=== PATIENT | female | born 1930 | race Caucasian/White ===

== ENCOUNTER → 2016-12-06 | Outpatient (CLI) | payer MEDICARE ==
[~2016-12-06] MED LIST: AC325T PO; ACET-789 PO; ACET325T38 PO; ALPR.25T PO; ASPI-504 PO; BENZ-13 PO; CALC-140 PO; CEFP250T2 PO; CHOL100061 PO; GABA600T PO; GBPN300C PO; GUAI473L8 PO; HYDR-3702 PO; HYDR-3754 PO; LEVO150T PO; LEVO75TA PO; LOVA40TA45 PO; LOVA40TA54 PO; LVCR25100 PO; MAG30ORA2 GT; MAGN400O7 PO; NYST30CR TOP; PRED20TA PO; SENN-115 PO; SENN-36 PO
== END ==
LOC: EMS 12:15
DX: Z53.20 Procedure and treatment not carried out because of patient's decision for unspecified reasons (principal)

== ENCOUNTER → 2017-02-14 | Outpatient (CLI) | payer MEDICARE | LOC: EMS 13:21 | DX: Z53.20 Procedure and treatment not carried out because of patient's decision for unspecified reasons (principal) ==

== ENCOUNTER 2017-02-16 02:28 | Emergency (ER) | payer MEDICARE ==
[~2017-02-16] VITALS: Ht 165.1 cm; Wt 75.0 kg
[~2017-02-16 02:28] MED LIST changes: -ACET-789 PO; -ALPR.25T PO
--- OUTSIDE RECORDS SUMMARY | 2017-02-16 02:38 | XMS REPORT | Continuity of Care Document ---
Author Author [facility] Organization [facility] Address Unknown Phone Unavailable Care Team Providers Care Farm Consultant Name Role Phone EULALIA LEBRON MD PCP [phone] Insurance Providers Payer Name Policy Number Subscriber Name Relationship Medicare A And B [id number] Charlotte Martinez 17 Self / Same As Patient Blue Cross [facility] Supp [id number] Charlotte Martinez 17 Self / Same As Patient Chief Complaint and Reason for Visit Chief Complaint Malaise Reason for Visit Weakness Malaise Problems Medical Problems Problem Onset Date Status Shoulder pain 09/04/2012 Active Bronchitis 02/02/2013 Active Hypoxemia 02/02/2013 Active 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 Arthritis 08/31/2013 Active Hip pain 12/16/2013 Active Accidental fall 12/16/2013 Active Abrasion 12/16/2013 Active 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 Nausea & vomiting 11/29/2014 Active Weakness Unknown Active Malaise Unknown Active Medications Medication Dose Route Sig Days/Qty Instructions Order Date Discontinued Date Status Hydrocodone Bit/Acetaminophen 1 Tab ORAL Q 4H PRN 09/04/12 02/02/13 Discontinued Levothyroxine Sodium 75 Mcg ORAL DIRECTED 09/04/12 09/12/13 Discontinued Lovastatin 40 Mg ORAL BEDTIME 09/04/12 09/12/13 Discontinued Calcium Carbonate/Vitamin D3 1 Each ORAL DAILY 09/04/12 02/02/13 Discontinued Aspirin 81 Mg ORAL DAILY 09/04/12 Active Senna 2 Ea ORAL TWICE A DAY 09/04/12 09/12/13 Discontinued Mag Hydrox/Al Hydrox/Simeth 30 Ml GT UNKNOWN 09/04/12 02/02/13 Discontinued Gabapentin (Neurontin) 1 Cap ORAL TWICE A DAY 02/02/13 02/06/13 Discontinued Guaifenesin/Codeine Phosphate ORAL NEEDED 02/02/13 02/06/13 Discontinued Gabapentin 600 Mg ORAL THREE TIMES A DAY 02/06/13 Active Cholecalciferol (Vitamin D3) 1,000 Unit ORAL BEDTIME 02/06/13 Active Benzonatate 100 - 200 Mg ORAL EVERY 8HRS PRN 02/06/13 06/27/13 Discontinued Cefprozil 250 Mg ORAL TWICE A DAY 7 Days 02/06/13 06/27/13 Discontinued Prednisone 40 Mg ORAL DAILY 3 Days 02/06/13 06/27/13 Discontinued Acetaminophen 650 Mg ORAL EVERY 4HRS PRN 06/27/13 08/31/13 Discontinued Acetaminophen/Hydrocodone Bitart 1 - 2 Each ORAL EVERY 4HRS PRN 08/3109/12/13 Discontinued Acetaminophen (Tylenol) 650 Mg ORAL EVERY 4HRS PRN 09/12/13 Discontinued Magnesium Hydroxide 30 Ml ORAL EVERY 6 HOURS PRN 09/12/13 12/31/13 Discontinued Levothyroxine Sodium 75 Mcg ORAL DIRECTED 09/12/13 12/01/14 Discontinued Sennosides 17.2 Mg ORAL TWICE A DAY 09/12/13 12/31/13 Discontinued Lovastatin 40 Mg ORAL DAILY 09/12/13 Active Senna 2 Ea ORAL TWICE A DAY PRN CONSTIPATION 12/31/13 Active Acetaminophen/Hydrocodone Bitart 1 Each ORAL THREE TIMES A DAY Active Nystatin 1 Applic TOPICAL TWICE A DAY 15 Qty 12/01/14 Active Levothyroxine Sodium 75 Mcg ORAL SuMoTuWeThFr@07 0 Qty 12/01/14 Active Levothyroxine Sodium 150 Mcg ORAL Sa@07 0 Qty 12/01/14 Active Social History No social history. Hospital Discharge Instructions No hospital discharge instructions. Plan of Care Discharge Date 04/02/15 2:27pm Disposition 01 HOME OR SELF-CARE Condition at Discharge Stable Instructions/Education Provided Hypothyroidism (ED) Prescriptions See Medications Section Referrals EULALIA LEBRON MD Additional Instructions/Education Eat regularly. Rest. follow up with primary care doctor. Return to ER as needed. Some of your test results may not be complete prior to your leaving the Emergency Department. The Emergency Department is not authorized to give test results over the phone. Please contact the doctor's office listed in this packet of information for your final results. Follow up with your primary care physician or return to the Emergency Department for worsening or worrisome symptoms. * Emergency Department phone number: [phone], x [phone]* MEDICAL RECORD If you need copies of your X-rays, call [phone]. If you need copies of your medical record, including lab results, a signed authorization for release of records will be required. A telephone call for release of Health Information is not allowed. BILLING Billing can sometimes be confusing and frustrating. To help avoid confusion in the future, please take a moment to acquaint yourself with the billing parties for services. SERVICE BILLING [employer] Emergency Room Services [facility] Physician Services [facility] [place] [facility] Patients will receive bills for services from the appropriate provider. If you have any questions about your [facility] bill, our staff will be happy to assist you. Please call [phone], and ask for the billing department. THANK YOU for choosing [facility] as your emergency care provider! Functional Status No functional status results. Allergies, Adverse Reactions, Alerts Allergen Type Severity Reaction Status Last Updated No Known Drug Allergies Active 09/04/12 Immunizations No immunization records. Vital Signs Acute Vital Signs Vital Response Date/Time Temperature (Fahrenheit) 98.1 Pulse 70 bpm Respirations 20 Height 5 ft 5 in Weight 159 lb Body Mass Index 26.0 kg/m^2 Results Test Source Date Result Interp. Ref. Range Comments Absolute Band Neutrophils December 27, 2013 5:45am 0.0 # Collected by nurse? N Absolute Neutrophil June 22, 2013 5:15am 0.1 # Collected by nurse ? N Activated Partial Thromboplast Time April 02, 2015 12:53pm 29.9 SEC N 24.9 -35.9 Alanine Aminotransferase (ALT/SGPT) April 02, 2015 12:53pm 20 U/L L 30-65 Albumin April 02, 2015 12:53pm 4.0 g/dL DN 3.4-5.0 Albumin/Globulin Ratio April 02, 2015 12:53pm 1.428 N 1.1-1.8 Alkaline Phosphatase April 02, 2015 12:53pm 61 U/L N 38-126 Blayne Test February 02, 2013 8:50am + Amylase Level November 29, 2014 2:45pm 45 U/L N 25-115 Collected by nurse? NCollected by nurse? N Collected by nurse? N Collected by nurse? N Collected by nurse? N Collected by nurse? N Anion Gap April 02, 2015 12:53pm 11.3 MEQ/L N 3-15 Arterial Blood Base Excess February 02, 2013 8:50am 3.0 N -2.0-3.0 Arterial Blood HCO3 February 02, 2013 8:50am 28.4 MEQ/L H 22.0-26.0 Arterial Blood Oxygen Saturation February 02, 2013 8:50am 91 % L 95-98 Arterial Blood Partial Pressure CO2 February 02, 2013 8:50am 47 mmHg H 35- 45 Arterial Blood Partial Pressure O2 February 02, 2013 8:50am 63 mmHg L 80- 105 Arterial Blood Total CO2 February 02, 2013 8:50am 30.0 MARGARITA/L H 23.0-27.0 Arterial Blood pH February 02, 2013 8:50am 7.39 N 7.35-7.45 All ABG Results called towho read back the results. Called by Cynthia Valdez at 0919 Aspartate Amino Transf (AST/SGOT) April 02, 2015 12:53pm 22 U/L N 15-37 B-Type Natriuretic Peptide June 17, 2013 4:00pm 46 PG/ML N 0-100 Collected by nurse? NComments to Office Technician: Call to Dr Lebron BUN/Creatinine Ratio April 02, 2015 12:53pm 19 N 10-20 Band Neutrophils % December 27, 2013 5:45am 0 % N 0-6 Collected by nurse? N Basophils # (Auto) April 02, 2015 12:53pm 0.0 10^3uL Basophils % February 05, 2013 5:45am 0 % N 0-1 Collected by nurse? N Basophils % (Manual) December 27, 2013 5:45am 0 % N 0-2 Collected by nurse? N Basophils (%) (Auto) April 02, 2015 12:53pm 0 % N 0-2 Blood Gas Liter Flow February 02, 2013 8:50am 2.0 LPM Blood Gas Puncture Site February 02, 2013 8:50am Left radial Blood Morphology Comment December 27, 2013 5:45am Normal NORMAL Collected by nurse? N Blood Urea Nitrogen April 02, 2015 12:53pm 14 mg/dL N 7-18 C-Reactive Protein June 22, 2013 5:15am 6.90 MG/DL H 0.0-0.9 Collected by nurse? N Calcium Level April 02, 2015 12:53pm 9.3 mg/dL N 8.8-10.8 Calcium/Ionized Calcium Ratio April 02, 2015 12:53pm 4.2 mg/dL N 3.8-4.6 Calculated Osmolality April 02, 2015 12:53pm 272 mosm/L L 280-300 Carbon Dioxide Level April 02, 2015 12:53pm 29 mmol/L N 22-29 Chloride Level April 02, 2015 12:53pm 104 mmol/L N 98-108 Cholesterol Level June 27, 2014 8:01am 243 mg/dL H 0-199 Creatine Kinase MB April 02, 2015 12:53pm 2.7 ng/mL N 0.0-6.0 Creatinine April 02, 2015 12:53pm 0.74 mg/dL N 0.6-1.2 D-Dimer February 02, 2013 8:35am 0.70 ug/mL PH 0.20-0.41 Results called to YAMINI/Terrie read back the results. Called by Shanique Dawn at 1021 Differential Total Cells Counted December 27, 2013 5:45am 100 Collected by nurse? N Eosinophils # December 27, 2013 5:45am 0.2 # Collected by nurse? N Eosinophils # (Auto) April 02, 2015 12:53pm 0.2 10^3uL Eosinophils % February 05, 2013 5:45am 10 % H 0-5 Collected by nurse? N Eosinophils % (Manual) December 27, 2013 5:45am 4 % N 0-4 Collected by nurse? N Eosinophils (%) (Auto) April 02, 2015 12:53pm 5 % H 0-4 Estimat Glomerular Filtration Rate April 02, 2015 12:53pm 90.3 Estimated GFR (Non- April 02, 2015 12:53pm 74.6 Ferritin January 26, 2013 10:28am 63 ng/mL 13-140 Glucose Level April 02, 2015 12:53pm 96 mg/dL N 70-110 HDL Cholesterol June 27, 2014 8:01am 60 mg/dL 40-84 Hematocrit April 02, 2015 12:53pm 39.90 % N 35.00-45.00 Hemoglobin April 02, 2015 12:53pm 13.0 g/dL N 12.0-15.5 Hypochromasia June 22, 2013 5:15am Slight Collected by nurse? N LDL Cholesterol, Calculated June 27, 2014 8:01am 161 mg/dL H 0-130 Lipase November 29, 2014 2:45pm 34 U/L N 23-300 Collected by nurse? NCollected by nurse? N Collected by nurse? N Collected by nurse? N Collected by nurse? N Collected by nurse? N Lymphocytes # December 27, 2013 5:45am 1.0 # Collected by nurse? N Lymphocytes # (Auto) April 02, 2015 12:53pm 0.9 X10^3 Lymphocytes % February 05, 2013 5:45am 42 % H 16-34 Collected by nurse? N Lymphocytes % (Manual) December 27, 2013 5:45am 16 % L 20-46 Collected by nurse? N Lymphocytes (%) (Auto) April 02, 2015 12:53pm 19 % L 20-46 Magnesium Level November 30, 2014 5:05am 2.1 MG/DL N 1.6-2.3 Collected by nurse? N Mean Corpuscular Hemoglobin April 02, 2015 12:53pm 29.9 PG N 26.0-34.0 Mean Corpuscular Hemoglobin Concent April 02, 2015 12:53pm 32.6 g/dL N 31.0-37.0 Mean Corpuscular Volume April 02, 2015 12:53pm 92 FL N 80-100 Mean Platelet Volume April 02, 2015 12:53pm 9.8 FL H 6.0-9.5 Metamyelocytes % December 27, 2013 5:45am 0 % N 0-1 Collected by nurse ? N Monocytes # December 27, 2013 5:45am 0.3 # Collected by nurse? N Monocytes # (Auto) April 02, 2015 12:53pm 0.4 X10^3 Monocytes % February 05, 2013 5:45am 12 % H 0-10 Collected by nurse? N Monocytes % (Manual) December 27, 2013 5:45am 5 % N 3-11 Collected by nurse? N Monocytes (%) (Auto) April 02, 2015 12:53pm 9 % N 3-11 Neutrophils # December 27, 2013 5:45am 4.8 # Collected by nurse? N Neutrophils # (Auto) April 02, 2015 12:53pm 3.1 X10^3 Neutrophils (%) (Auto) April 02, 2015 12:53pm 67 % N 51-67 Phosphorus Level November 30, 2014 5:05am 3.9 MG/DL N 2.4-4.9 Collected by nurse? N Platelet Count April 02, 2015 12:53pm 234 10^3uL N 150-450 Potassium Level April 02, 2015 12:53pm 4.3 mmol/L N 3.5-5.1 Prothromb Time International Ratio April 02, 2015 12:53pm 1.1 N 0.8-1.4 Prothrombin Time April 02, 2015 12:53pm 14.4 SEC H 11.9-14.2 Red Blood Count April 02, 2015 12:53pm 4.35 10^6uL N 4.00-5.00 Red Cell Distribution Width April 02, 2015 12:53pm 14.6 % N 11.8-15.6 Segmented Neutrophils % December 27, 2013 5:45am 75 % H 51-67 Collected by nurse? N Smear Scan December 24, 2013 5:35am Yes ANISOCYTOSIS SLIGHTMACROCYTOSIS SLIGHT VERIFIED BY SCAN OF SMEAR. Smudge Cells December 27, 2013 5:45am Not Performed Sodium Level April 02, 2015 12:53pm 140 mmol/L N 135-150 Thyroid Stimulating Hormone (TSH) April 02, 2015 12:53pm 2.79 uIU/mL DN 0.46-4.68 Thyroxine (T4) August 02, 2014 2:21pm 8.3 ug/dL 4.8-11.7 Total Bilirubin April 02, 2015 12:53pm 0.5 mg/dL DN 0.1-1.0 Total Creatine Kinase April 02, 2015 12:53pm 141 U/L H 30-135 Total Protein April 02, 2015 12:53pm 6.8 g/dL N 6.4-8.5 Triglycerides Level June 27, 2014 8:01am 110 mg/dL 0-149 Troponin I April 02, 2015 12:53pm < 0.012 ng/mL 0.010-0.080 Urine Bacteria June 27, 2014 8:01am None seen /HPF Urine Bilirubin November 30, 2014 6:05pm Negative Negative Collected by nurse? YHas specimen been collected/obtained? Y Urine Blood November 30, 2014 6:05pm Negative Negative Collected by nurse? YHas specimen been collected/obtained? Y Urine Clarity November 30, 2014 6:05pm Clear Collected by nurse? YHas specimen been collected/obtained? Y Urine Collection Type November 30, 2014 6:05pm Clean catch Collected by nurse? YHas specimen been collected/obtained? Y Urine Color November 30, 2014 6:05pm Light yellow Collected by nurse ? YHas specimen been collected/obtained? Y Urine Glucose (UA) November 30, 2014 6:05pm Negative Negative Collected by nurse? YHas specimen been collected/obtained? Y Urine Hyaline Casts January 26, 2013 10:28am 1+ /LPF H Urine Ketones November 30, 2014 6:05pm Negative Negative Collected by nurse? YHas specimen been collected/obtained? Y Urine Leukocyte Esterase November 30, 2014 6:05pm Negative Negative Collected by nurse? YHas specimen been collected/obtained? Y Urine Mucus August 23, 2013 2:29pm 1+ Urine Nitrite November 30, 2014 6:05pm Negative Negative Collected by nurse? YHas specimen been collected/obtained? Y Urine Protein November 30, 2014 6:05pm Negative Negative Collected by nurse? YHas specimen been collected/obtained? Y Urine RBC June 27, 2014 8:01am 2-5 /HPF Urine Renal Epithelial Cells August 23, 2013 2:29pm 2-5 /LPF Urine Specific [place] November 30, 2014 6:05pm 1.015 1.005-1.030 Collected by nurse? YHas specimen been collected/obtained? Y Urine Squamous Epithelial Cells June 27, 2014 8:01am 2-5 /LPF Urine Transitional Epithelial Cells August 23, 2013 2:29pm 0-2 /LPF Urine Urobilinogen November 30, 2014 6:05pm 0.2 mg/dL 0.2-1.0 Collected by nurse? YHas specimen been collected/obtained? Y Urine WBC June 27, 2014 8:01am None seen /HPF Urine pH November 30, 2014 6:05pm 7.0 5.0 - 8.0 Collected by nurse? YHas specimen been collected/obtained? Y VLDL Cholesterol June 27, 2014 8:01am 22 mg/dL 0-28 Vitamin D 25-Hydroxy January 26, 2013 10:28am 29 ng/mL L 30-74 The desirable level of 25-Hydroxy Vitamin D Total(D2 + D3) is 30-74 ng/mL.A level consistently >200 is potentially toxic. Vitamin D2 January 26, 2013 10:28am <7 ng/mL () Vitamin D3 January 26, 2013 10:28am 29 ng/mL () Volume Urine Centrifuged June 27, 2014 8:01am 10 ml White Blood Count April 02, 2015 12:53pm 4.58 10^3uL N 4.0-11.0 Urine Culture Urine-Clean Catch June 07, 2013 12:20pm Procedures No known history of procedures. Encounters Encounter Location Date/Time Departed Emergency Room [facility] 04/02/15 12:03pm Recent Diagnosis
--- NOTE | 2017-02-16 02:40 | NUR ---
ABELARDO Gale NOTIFIED DR SHARP AND GAVE HIM REPORT. SHOULDER X RAY ORDERED BY
[2017-02-16] MEDS ORDERED: HYDR-3702 PO (03:05)
[2017-02-16] MEDS ORDERED: ALPR.25T PO (03:05)
[2017-02-16] MEDS ORDERED: ACET-789 PO (03:25)
[2017-02-16 03:37] VITALS: BP 157/83
--- NOTE | 2017-02-16 07:40 | Diagnostic Imaging Report ---
INDICATION: Fell, right shoulder pain FINDINGS: 3 views of the right shoulder compared to an exam from May the . Exam demonstrates stable right shoulder arthroplasty. No acute findings are present. IMPRESSION: Stable right shoulder. Dictated by: Dictated on workstation # [id number]
== END 2017-02-16 03:54 | disposition home or self-care (01) ==
LOC: EDUNIT# 02:28 → ED 02:32
DX: S46.911A Strain of unspecified muscle, fascia and tendon at shoulder and upper arm level, right arm, initial encounter (principal); S20.212A Contusion of left front wall of thorax, initial encounter; W01.10XA Fall on same level from slipping, tripping and stumbling with subsequent striking against unspecified object, initial encounter; Z91.81 History of falling; Y92.009 Unspecified place in unspecified non-institutional (private) residence as the place of occurrence of the external cause
CPT/HCPCS: 73030; 99282; 99283

== ENCOUNTER → 2017-02-16 | Outpatient (CLI) | payer MEDICARE | LOC: EMS 00:30 | PROVIDERS: ATTEND Family Medicine | DX: M54.2 Cervicalgia (principal); M25.511 Pain in right shoulder; Z96.611 Presence of right artificial shoulder joint; W19.XXXA Unspecified fall, initial encounter ==

== ENCOUNTER 2017-03-05 11:09 | Observation (INO) | payer MEDICARE ==
[~2017-03-05] VITALS: Ht 160 cm; Wt 67.0 kg
[~2017-03-05 11:09] MED LIST changes: -BACI1PAC7 TOP; -BACI3.5O5 TOP; -LEVO75TA6 PO
--- OUTSIDE RECORDS SUMMARY | 2017-03-05 11:16 | XMS REPORT | Continuity of Care Document ---
Author Author [facility] Organization [facility] Address Unknown Phone Unavailable Care Team Providers Care Senior Clinician Name Role Phone EULALIA LEBRON MD PCP [phone] Insurance Providers Payer Name Policy Number Subscriber Name Relationship Medicare A And B [id number] Charlotte Martinez 17 Self / Same As Patient Blue Cross [facility] Supp [id number] Charlotte Martinez 17 Self / Same As [...] worrisome symptoms. * Emergency Department phone number: [phone], x [phone]* MEDICAL RECORD If you need copies of your X-rays, call [phone] x [phone]. If you need copies of [...] the billing parties for services. SERVICE BILLING [employer] Emergency Room Services [facility] Physician Services [facility] [place] [facility] Patients will receive bills for services from the appropriate provider. If you have any questions about your [facility] bill, our staff will be happy to assist you. Please call [phone], and ask for the billing department. THANK YOU for choosing [facility] as your emergency care provider! Functional Status [...] N 0-100 Collected by nurse? NComments to Voice Over Artist: Call to Dr Lberon BUN/Creatinine Ratio April 02, 2015 12:53pm 19 [...] 23, 2013 2:29pm 2-5 /LPF Urine Specific [place] November 30, 2014 6:05pm 1.015 1.005-1.030 Collected [...] Encounters Encounter Location Date/Time Departed Emergency Room [facility] 04/02/15 12:03pm Recent Diagnosis
[2017-03-05 11:39] LABS: BASOPHILS % (AUTO) 1 % (0-2); EOSINOPHILS # (AUTO) 0.5 10^3uL; EOSINOPHILS % (AUTO) 11 % (0-4); LYMPHOCYTES # (AUTO) 0.9 X10^3; MEAN CORPUSCULAR HEMOGLOBIN 29.4 PG (26.0-34.0); MEAN CORPUSCULAR VOLUME 93 FL (80-100); MEAN PLATELET VOLUME 10.2 FL (6.0-9.5); MONOCYTES # (AUTO) 0.4 X10^3; MONOCYTES % (AUTO) 9 % (3-11); NEUTROPHILS # (AUTO) 3.1 X10^3; NEUTROPHILS % (AUTO) 60 % (51-67); PLATELET COUNT 203 10^3uL (150-450); WHITE BLOOD COUNT 5.07 10^3uL (4.0-11.0)
[2017-03-05 11:42] LABS: MEAN CORPUSCULAR HGB CONC 31.7 g/dL (31.0-37.0)
[2017-03-05 11:53] LABS: ALBUMIN 4.3 g/dL (3.4-5.0); ALKALINE PHOSPHATASE 136 U/L (38-126); ANION GAP 15.7 MEQ/L (3-15); BUN/CREATININE RATIO 25 (10-20); CALCULATED IONIZED CALCIUM 4.1 mg/dL (3.8-4.6); CREATINE KINASE 141 U/L (30-135); TOTAL PROTEIN 7.5 g/dL (6.4-8.5)
[2017-03-05] MEDS ORDERED: DOCUSATE SODIUM 100 MG (COLACE) CAP PO PRN (13:05)
[2017-03-05] MEDS ORDERED: MAG HYDROX/AL HYDROX/SIMETH 200-200-20/5 ML (MAG-AL PLUS) 30 ML UDC PO PRN (13:05)
[2017-03-05] MEDS ORDERED: CALCIUM CARBONATE CHEWABLE 300 MG (TUMS) TABLET PO PRN (13:05)
[2017-03-05] MEDS ORDERED: ACETAMINOPHEN 325 MG TAB (TYLENOL) PO PRN (13:05)
[2017-03-05] MEDS ORDERED: POLYETHYLENE GLYCOL 17 GM (MIRALAX) PACKET PO PRN (13:05)
[2017-03-05] MEDS ORDERED: MAGNESIUM HYDROXIDE 80MG/ML (MILK OF MAGNESIA) 30 ML UDC PO PRN (13:05)
[2017-03-05] MEDS ORDERED: NITROGLYCERIN SUBLINGUAL 0.4 MG (NITROQUICK) TABLET SL PRN (13:05)
[2017-03-05] MEDS ORDERED: PROMETHAZINE HCL INJ 12.5 MG in SODIUM CHLORIDE 25 ML IV PRN (13:05)
[2017-03-05] MEDS ORDERED: ONDANSETRON 4 MG (ZOFRAN) ORAL DISSOLVE TAB PO PRN (13:05)
[2017-03-05] MEDS ORDERED: morphine INJ 4 MG/ML 1 ML SYRINGE IV PRN (13:05)
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
[2017-03-05] MEDS ORDERED: NS FLUSH 3 ML PRN IV (13:20)
[2017-03-05] MEDS ORDERED: NS FLUSH 10 ML PRN IV (13:20)
[2017-03-05] MEDS ORDERED: BACI3.5O5 TOP (13:37)
[2017-03-05] MEDS ORDERED: LEVO75TA6 PO ×2 (13:37)
--- NOTE | 2017-03-05 13:45 | NUR ---
Pt admitted to room 314 via w/c from ED accompanied by Manuel BEE. Daughter came with patient as well.
[2017-03-05 14:17] VITALS: BP 147/75
[2017-03-05 14:26] LABS: MAGNESIUM* 2.3 mg/dL (1.6-2.3)
[2017-03-05 14:28] VITALS: BP 147/75
--- NOTE | 2017-03-05 14:38 | Diagnostic Imaging Report ---
INDICATION: Chest pain. COMPARISON: 04/02/15. FINDINGS: Ill-defined nodular opacities in the left mid and lower lung zones. No pleural effusion or pneumothorax. Normal cardiomediastinal silhouette. Atherosclerotic aorta. Partially imaged right shoulder arthroplasty. IMPRESSION: 1. Ill-defined nodular opacities in the left mid to lower lung zone are likely infectious in etiology. Dictated by: Dictated on workstation # [id number]
[2017-03-05] MEDS ORDERED: ACETAMINOPHEN/CODEINE 300MG/30 MG (TYLENOL #3) TABLET PO PRN (14:40)
--- NOTE | 2017-03-05 15:12 | NUR ---
MED REC COMPLETE--current med list obtained from external med history, retail pharmacy ([facility]), and patient interview.
[2017-03-05 15:46] VITALS: BP 109/55
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
[2017-03-05] MEDS: GABAPENTIN 600 MG (NEURONTIN) TAB PO SCH (18:01)
--- NOTE | 2017-03-05 18:12 | NUR ---
Pt sitting upright in bed, eating supper. Denies having any further chest pain or chest discomfort- Daughter, Akila at bedside. Takes PM meds without difficulty.
[2017-03-05 19:55] VITALS: BP 107/64
[2017-03-05] MEDS: CHOLECALCIFEROL 1000 INT UNITS (VITAMIN D3) TABLET PO SCH (20:17)
[2017-03-06 00:10] VITALS: BP 110/65
[2017-03-06 04:33] VITALS: BP 131/85
[2017-03-06] MEDS ORDERED: LEVOTHYROXINE 150 MCG (LEVOTHROID) TABLET PO SCH (07:00)
--- NOTE | 2017-03-06 07:00 | NUR ---
Patient rests in bed throughout night without needs. Reports no chest pain throughout night. Up to bathroom x1 this shift with missed hat, UA has not been collected. No needs at this time.
[2017-03-06 07:37] LABS: ALBUMIN 3.2 g/dL (3.4-5.0); ANION GAP 11.6 MEQ/L (3-15)
[2017-03-06 07:44] VITALS: BP 97/62
[2017-03-06] MEDS: ENOXAPARIN 40 MG/0.4 ML (LOVENOX) SYR SC SCH (08:19)
[2017-03-06] MEDS: NS FLUSH 3 ML DAILY IV SCH (08:19)
[2017-03-06] MEDS: GABAPENTIN 600 MG (NEURONTIN) TAB PO SCH ×3 (08:19→18:26)
[2017-03-06] MEDS: ASPIRIN 81 MG CHEW (LOW-DOSE) PO SCH (08:19)
[2017-03-06 08:53] LABS: BILIRUBIN,URINE Negative (Negative); CLARITY,URINE Clear; COLOR,URINE Yellow; GLUCOSE, URINE (UA) Negative (Negative); LEUKOCYTE ESTERASE ,URINE Negative (Negative); UROBILINOGEN,URINE 0.2 mg/dL (0.2-1.0)
--- NOTE | 2017-03-06 08:53 | NUR ---
Patient ate 100% breakfast, took AM meds without difficulty. IV SL intact to Lt wrist- flushes without difficulty. Remains on RA. Sats 92%. When asked if she has any chest pain or discomfort patient states "no, but I am breathing more heavy because my back hurts from this bed." Expiratory wheezes noted- audible from door- Rahel RT notified. This nurse encouraged patient to get up to bathroom then chair to prevent pneumonia from laying in bed- patient hesitant but agrees- Ambulates to bathroom with 1 assist and walker, does lean back and loses balance- staff has to support her to a forward position with walker. UA obtained and sent to lab at this time. Pt refuses to take a shower- Terrie Gale CNA gives patient a sponge bath at bedside. Pt up in chair now- BLE elevated. Call light within reach. Telemetry in place- reading NSR with first degree and occasional Bundle branch block, rate 70-80s-per Charity ZHOU in ICU. Will cont to monitor patient.
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
[2017-03-06 11:01] LABS: BASOPHILS % (AUTO) 0 % (0-2); EOSINOPHILS # (AUTO) 0.4 10^3uL; EOSINOPHILS % (AUTO) 8 % (0-4); LYMPHOCYTES # (AUTO) 1.2 X10^3; MEAN CORPUSCULAR HEMOGLOBIN 29.4 PG (26.0-34.0); MEAN CORPUSCULAR HGB CONC 31.8 g/dL (31.0-37.0); MEAN CORPUSCULAR VOLUME 93 FL (80-100); MEAN PLATELET VOLUME 10.4 FL (6.0-9.5); MONOCYTES # (AUTO) 0.7 X10^3; MONOCYTES % (AUTO) 12 % (3-11); NEUTROPHILS # (AUTO) 3.1 X10^3; NEUTROPHILS % (AUTO) 57 % (51-67); PLATELET COUNT 225 10^3uL (150-450); WHITE BLOOD COUNT 5.39 10^3uL (4.0-11.0)
[2017-03-06] MEDS: CARBIDOPA PO SCH ×3 (12:47→20:41)
[2017-03-06] MEDS: LEVODOPA PO SCH ×3 (12:47→20:41)
[2017-03-06 16:00] VITALS: BP 110/68
--- NOTE | 2017-03-06 19:45 | NUR ---
Pt sitting up in recliner watching tv, alert and oriented x 4, Resp are even and nonlabored, LCTAB, HRRR, BS are active x 4 quadrants. Telemetry has been DC'd, has denied chest pain. SL is patent, no redness, swelling, or s/s of infection noted at this time. Denies pain or needs at this time, call light is in reach, tab alarm is on and in place, will continue to monitor.
[2017-03-06 20:00] VITALS: BP 116/64
[2017-03-06] MEDS: CHOLECALCIFEROL 1000 INT UNITS (VITAMIN D3) TABLET PO SCH (20:41)
[2017-03-07 00:16] VITALS: BP 128/72
[2017-03-07 04:21] VITALS: BP 120/71
--- NOTE | 2017-03-07 04:59 | NUR ---
Pt is resting in bed asleep, resp are even and nonlabored, does not appear to be in discomfort at this time. Will continue to monitor.
[2017-03-07] MEDS: LEVOTHYROXINE 75 MCG (LEVOTHROID) TABLET PO SCH (06:08)
[2017-03-07 07:35] VITALS: BP 109/57
[2017-03-07] MEDS: GABAPENTIN 600 MG (NEURONTIN) TAB PO SCH ×3 (08:10→17:33)
--- NOTE | 2017-03-07 09:13 | NUR ---
NUTRITION ASSESSMENT Level 1 Patient: Charlotte Romero Age/Sex: 86/F Date Screened: 03-07-17 Weight: 150#/68.2 kg Height: 63 inches Primary Diagnosis: chest pain Diet Order: cardiac Relevant labs: N/A Food allergies: N Nutrition Assessment Criteria Age over 80: 4 points Body Mass Index (BMI) under 19: N Admission Screening Indicates Risk? 3 points Moderate/High Risk Diagnosis: N TPN or PPN: N NPO or clear liquid diet: N Serum Glucose <70 or >180: N/A Hgb A1c >6.7: N/A Total: 7 points Risk Screen: __ Patient at low nutritional risk based on available data; reevaluate in 5-7 days __ Patient at moderate nutritional risk based on available data; reevaluate in 3-5 days _X_ Patient at high nutritional risk; complete Nutrition Assessment within 48 hours of admission.
[2017-03-07] MEDS: ASPIRIN 81 MG CHEW (LOW-DOSE) PO SCH (10:17)
[2017-03-07] MEDS: CARBIDOPA PO SCH ×4 (10:18→21:28)
[2017-03-07] MEDS: NS FLUSH 3 ML DAILY IV SCH (10:18)
[2017-03-07] MEDS: ENOXAPARIN 40 MG/0.4 ML (LOVENOX) SYR SC SCH (10:18)
[2017-03-07] MEDS: LEVODOPA PO SCH ×4 (10:18→21:28)
[2017-03-07 11:34] VITALS: BP 135/67
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
--- NOTE | 2017-03-07 13:38 | NUR ---
MULTIDISCIPLINARY MTG/DR. BALTAZAR: Pt. has improved. Pt. was started on Parkinson's medication and will discharge on medications. PT/OT will evaluate Pt. Pt. lives at home alone. She receives home health services through [facility] and she get Meals on Wheels. CARLO visited with Pt. and her daughter. Pt. daughter reports she checks on her mother daily and helps her with her medications. She reports Pt. has fallen a couple times. Pt. does use a walker at home. Pt. is on the waiting list for [facility] assisted living. Pt. daughter is going to talk to [facility] today to discuss placement or respite. CARLO reviewed the [facility] form with Pt. and daughter. They verbalized understanding and signed the form. A copy was given to Pt. and the original was placed in the chart.
--- NOTE | 2017-03-07 14:34 | PT Daily Note Inpatient (E) ---
PT Daily Treatment Service Date/Time 03/07/17, 14:28 Medical Diagnosis: Physical Therapy: Precaution/Isolation: Standard Precautions Resuscitation Status: Do Not Resuscitate Fall Level: High Risk 51 or greater Subjective Oxygen Delivery: Room air O2 liters/minute: 0 Treatments Stretching Stretching bilateral calves manually 30 seconds x 3 on each. Transfers Sit-Stand from bed: Minimal Assistance (from recliner with cues to scoot forward in chair.) Stand-Sit: Contact Guard Assist (cues for safety when approaching chair.) Gait Ambulation: Contact Guard Assist Distance Walked: 80 feet x 2. Pt initially leans backward and requires cues to take bigger steps as she tends to shuffle. Assistive Device: FWW Gait Description: Decreased Lory, Slow, Shuffling, Short Step Length, Flexed Trunk Gait Training: Limitations: Fatigue Education/Plan Coding Time In: 14:11 Time Out: 14:28 Total Minutes: 17 Charges: 19468 Exercise Therp 15 m (17 minutes) Caleb Davison PROJECT ARCHITECT Mar 07, 2017 14:34
[2017-03-07 15:25] VITALS: BP 148/80
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
--- NOTE | 2017-03-07 16:32 | NUR ---
Pt. daughter reported [facility] does not have any openings at this time. Pt. daughter had a call into [facility]. CARLO followed up with [facility] and they came and assessed Pt. They also spoke to Pt. daughter about the financial part of her stay. [facility] has accepted Pt. for respite care. Once they receive information from Dr. Lebron they will let SW know and Pt. can be discharged to their facility. Pt. will benefit from PT/OT through [facility] upon discharge.
--- NOTE | 2017-03-07 17:07 | Physical Therapy Evaluation(E) ---
Initial Evaluation Service Date/Time 03/07/17, 17:05 Primary Diagnosis: (1) Weakness ICD Code: R53.1 (2) Shoulder injury ICD Code: S49.90XA (3) Contusion of rib on left side ICD Code: S20.212A (4) Chest pain ICD Code: R07.9 (5) Parkinsons disease Treatment Diagnosis: (1) Weakness ICD Code: R53.1 (2) Bronchitis ICD Code: 490 (3) Arthritis (4) Parkinsons disease Onset Date: 03/05/2017 Resuscitation Status: Do Not Resuscitate Precaution/Isolation: Standard Precautions Fall Level: High Risk 51 or greater Assessment/Goals Initial Transfer Assessment Sit-Stand from Bed: Minimal Assistance (from recliner with cues to scoot forward in chair.) Stand-Sit: Contact Guard Assist (cues for safety when approaching chair.) Ambulation: Contact Guard Assist Coding Time In: 1222 Time Out: 1235 Total Minutes: 14 Charges: 95980 Eval< 20 min DIRK WORKMAN PT Mar 07, 2017 17:07
--- NOTE | 2017-03-07 20:00 | NUR ---
Resting in bed. Alert and oriented. Visited with patient regarding going to [place] until she gets stronger and possibly longer. Patient does not like the idea, but is somewhat accepting as family strongly suggests that she go. Minimal edema in lower legs and feet. Socks removed for a short period, due to them causing indentations in her legs. Pleasant. Denies any discomforts. Call light within reach.
[2017-03-07] MEDS: CHOLECALCIFEROL 1000 INT UNITS (VITAMIN D3) TABLET PO SCH (21:28)
[2017-03-08 00:10] VITALS: BP 100/55
--- NOTE | 2017-03-08 05:51 | NUR ---
Patient rested at long intervals tonight. Turned and repositioned. Dressing changed to right shoulder. Telfa dry.No drainage. Open areas healing well. Area redressed. Ambulated to the bathroom with assist of two and staff using gait belt. Moves slowly, does fairly well. Voided large amount of urine in toilet. Missed the hat. Ambulated patient back to bed. Pleasant. Slightly SOA with exertion. Remains on RA. Mepilex placed on small scabbed area on right inner buttocks area. Patient denies any discomforts. Call light within reach.
--- NOTE | 2017-03-08 06:26 | NUR ---
When lisa care given noted to have an ecchymotic area under left buttocks.
[2017-03-08] MEDS: LEVOTHYROXINE 75 MCG (LEVOTHROID) TABLET PO SCH (06:33)
[2017-03-08 07:28] VITALS: BP 119/71
[2017-03-08] MEDS: GABAPENTIN 600 MG (NEURONTIN) TAB PO SCH ×2 (08:27→12:35)
[2017-03-08] MEDS: ASPIRIN 81 MG CHEW (LOW-DOSE) PO SCH (08:28)
[2017-03-08] MEDS: CARBIDOPA PO SCH ×2 (08:28→12:35)
[2017-03-08] MEDS: LEVODOPA PO SCH ×2 (08:28→12:35)
[2017-03-08] MEDS: NS FLUSH 3 ML DAILY IV SCH (08:29)
[2017-03-08] MEDS: ENOXAPARIN 40 MG/0.4 ML (LOVENOX) SYR SC SCH (08:29)
--- NOTE | 2017-03-08 08:30 | NUR ---
PRN Tylenol #3 1 tab given at this time for c/o R shoulder pain rated 7/10. Pt states "1 tab usually does the trick". Sitting up in bed. Skin warm, dry. Resprs nonlabored, even on RA. Drsg to R shoulder intact. Call light within reach. Denies other needs.
--- NOTE | 2017-03-08 09:23 | NUR ---
Plan for Pt. to discharge to [place] for respite care today. Will order PT/OT for Pt. through [facility]. Pt. daughter would like to take Pt. at 13:00. Pt. daughter reported Pt. is not very happy about going but feels this is the best thing for her.
--- NOTE | 2017-03-08 11:14 | Diagnostic Imaging Report ---
INDICATION: Followup of vague nodule in the left lower lung. PA and lateral views as well as oblique views are obtained. There is improved aeration of the lungs on today's upright exam. The nodular density is not demonstrated on today's study. Lateral view does suggest minimal atelectasis in the lingula. The lungs are otherwise clear. There is no hilar adenopathy. The heart is not enlarged. No pneumothorax or pleural effusion. There is noted compression fracture of T12 and T11. Comparison with previous exam of 08/10/2016 of the lumbar spine does show the compression has increased now with approximately 50% loss of body height at both levels. IMPRESSION: 1. No evidence of persistent lung nodules. Minimal atelectasis remains in the lingula. 2. Compression fractures T11 and T12. These have progressed slightly since 08/10/2016. Report called to Dr. Amaya, 3rd floor [facility] by debbie at 11:13 am. Dictated by: Dictated on workstation # [id number]
[2017-03-08 11:27] VITALS: BP 125/71
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
[2017-03-08] MEDS ORDERED: BACI1PAC7 TOP (12:15)
--- NOTE | 2017-03-08 12:54 | NUR ---
SL removed with catheter tip intact. Pressure held, bandage applied. Pt changed into her home clothes with one assist in preparation for discharge.
[2017-03-08] MEDS ORDERED: LVCR25100 PO (12:58)
--- NOTE | 2017-03-08 13:00 | Discharge Instructions (E) ---
Discharge Instructions Instructions Continue medications as prescribed Contact your Doctor for questions or concerns Activity Instructions as tolerates PT/OT per [facility] Doctor's Appointment Appt With Dr Lebron- please contact them. Discharge Diet: Heart Healthy Aditi Thomson APRN Mar 08, 2017 13:00
--- NOTE | 2017-03-08 13:15 | NUR ---
Discharge instructions reviewed with patient and daughter, both demonstrate understanding. Belongings gathered. Pt dismissed at this time via w/c accompanied by daughter and Pooja Carlin CNA. Skin warm, dry. Drsg to R shoulder intact. Resprs nonlabored, even on RA. Pt appreciative of cares.
--- NOTE | 2017-03-08 13:27 | NUR ---
Report called to ABELARDO Fregoso at [facility] [phone].
[2017-03-08] MEDS ORDERED: BACITRACIN OINTMENT 0.9 GM PACKET TOP SCH (21:00)
== END 2017-03-08 13:15 | disposition home or self-care (01) ==
LOC: EDUNIT# 11:09 → ED 11:10 → MED/SURG 12:50
PROVIDERS: ADMIT Internal Medicine; ATTEND Internal Medicine
DX: R07.9 Chest pain, unspecified (principal); G20 Parkinson's disease; R91.8 Other nonspecific abnormal finding of lung field; R26.81 Unsteadiness on feet; G89.29 Other chronic pain; E78.5 Hyperlipidemia, unspecified; Z91.81 History of falling; E03.9 Hypothyroidism, unspecified; K21.9 Gastro-esophageal reflux disease without esophagitis; K59.00 Constipation, unspecified; I45.10 Unspecified right bundle-branch block; G62.9 Polyneuropathy, unspecified; T22.251D Burn of second degree of right shoulder, subsequent encounter; X15.8XXD Contact with other hot household appliances, subsequent encounter; Z86.73 Personal history of transient ischemic attack (TIA), and cerebral infarction without residual deficits
CPT/HCPCS: 36415; 71010; 71022; 80053; 80069; 81003; 82550; 82553; 83735; 83880; 84439; 84443; 84484; 85025; 85610; 86140; 93005; 93306; 96372; 97110; 97161; 97166; 99285; A9270; G0378; G8981; G8982; G8987; G8988; J1650; 93010; 99218

== ENCOUNTER → 2017-03-05 | Outpatient (CLI) | payer MEDICARE ==
[~2017-03-05] MED LIST changes: +ACET-789 PO; +ALPR.25T PO; +BACI1PAC7 TOP; +BACI3.5O5 TOP; +LEVO75TA6 PO
== END ==
LOC: EMS 11:05
PROVIDERS: ATTEND Family Medicine
DX: R07.89 Other chest pain (principal)